=== PATIENT | male | born 1990 | race Caucasian/White ===

== ENCOUNTER 2021-06-30 13:48 | Emergency (ER) | payer BC ==
[~2021-06-30] VITALS: Ht 182.9 cm; Wt 108.9 kg
[2021-06-30] MEDS ORDERED: DEXTROSE 50% 50 ML DISP.SYRIN IV ONE ×2 (14:15)
[2021-06-30] MEDS ORDERED: DEXAMETHASONE 4 MG TABLET PO ONE (14:15)
[2021-06-30] MEDS ORDERED: DEXA6TAB6 PO (14:22)
[2021-06-30] MEDS ORDERED: ALBU8.5H8 INH (14:22)
[2021-06-30] MEDS ORDERED: AZIT250T PO (14:22)
[2021-06-30] MEDS ORDERED: DEXAMETHASONE 4 MG TABLET ONE (14:31)
--- NOTE | 2021-06-30 14:35 | NUR ---
Patient discharged to home in stable condition. Written and verbal after care instructions given. Patient verbalizes understanding of instructions. Stressed follow up or return to ER for worsening s/s.
[2021-06-30 14:37] VITALS: BP 153/82
== END 2021-06-30 14:38 | disposition home or self-care (01) ==
LOC: ER 13:48
DX: U07.1 COVID-19 (principal); J12.82 Pneumonia due to coronavirus disease 2019
CPT/HCPCS: 71045; 99283; J8540; A4663

== ENCOUNTER 2021-07-12 19:45 | Emergency (ER) | payer BC ==
[~2021-07-12] VITALS: Ht 182.9 cm; Wt 104.3 kg
[~2021-07-12 19:45] MED LIST: ALBU8.5H8 INH; AZIT250T PO; DEXA6TAB6 PO
--- NOTE | 2021-07-12 19:55 | NUR ---
Pt here for flu symptoms, "lung pain", denies chest pain. Pt tested covid + 21 days ago, according to pt. was here and d/c june 29 w/ pnuemonia. Pt tachycardic hr 130-140's, otherwise vss stable. Pt stated he had a 102 fever at home today. Spo2>95% on RA.
[2021-07-12] MEDS ORDERED: IV NORMAL SALINE 1000 ML BAG IV ONE (20:30)
[2021-07-12] MEDS ORDERED: CEFTRIAXONE 1 G in IV DEXTROSE 5% 50 ML IV ONE (20:30)
[2021-07-12 20:37] LABS: HEMATOCRIT 43.1 % (36.7-47.1); MEAN CORPUSCULAR HEMOGLOBIN 26.9 uug (23.8-33.4); MEAN CORPUSCULAR VOLUME 80.7 fL (73.0-96.2); PLATELET COUNT (AUTO) 298 K/uL (152-348)
[2021-07-12] MEDS ORDERED: CEFTRIAXONE /D5W 50ML IVPB **ER PYXIS IV ONE (20:45)
[2021-07-12 20:48] LABS: CREATININE 1.1 mg/dL (0.6-1.3); POTASSIUM 3.6 mmol/L (3.5-5.1)
[2021-07-12 21:00] LABS: BILIRUBIN,DIRECT 0.2 mg/dL (0.0-0.2); BILIRUBIN,TOTAL 0.8 mg/dL (0.2-1.0); TOTAL PROTEIN, SERUM 7.9 g/dL (6.4-8.2)
[2021-07-12 21:16] LABS: *BILIRUBIN,URIN NEGATIVE (NEGATIVE); *BLOOD, URINE NEGATIVE (NEGATIVE); *CLARITY,URINE CLEAR (CLEAR); *COLOR,URINE YELLOW (YELLOW); *KETONES,URINE NEGATIVE (NEGATIVE); *UROBILINOGEN,URINE 0.2 E.U./dl (NORMAL); LEUKOCYTE ESTERASE ,URINE NEGATIVE (NEGATIVE); NITRITE, URINE NEGATIVE (NEGATIVE); UGLUCOSE NEGATIVE (NEGATIVE)
--- NOTE | 2021-07-12 22:10 | NUR ---
Pt oral temp 102.2, MD notified, cooling measures in place.
[2021-07-12] MEDS ORDERED: DEXA4TAB PO (22:18)
[2021-07-12] MEDS ORDERED: CEFD300C3 PO (22:18)
[2021-07-12] MEDS ORDERED: ACETAMINOPHEN 325 MG TABLET PO ONE (22:30)
[2021-07-12] MEDS ORDERED: DEXAMETHASONE SOD PHOSPHATE 4 MG INJ IV ONE (22:30)
[2021-07-12] MEDS ORDERED: ACETAMINOPHEN 325 MG TABLET ONE (22:36)
[2021-07-12] MEDS ORDERED: DEXAMETHASONE SOD PHOSPHATE 10 MG INJ ONE (22:37)
--- NOTE | 2021-07-13 | NUR ---
Patient discharged to home in stable condition. Written and verbal after care instructions given. Patient verbalizes understanding of instructions. Stressed follow up or return to ER for worsening s/s. Patient out of ER with steady gait, no acute signs of distress, VSS, all belongings taken, IV site discontinued.
[2021-07-13 00:01] VITALS: BP 149/82
== END 2021-07-13 00:02 | disposition home or self-care (01) ==
LOC: ER 19:49
DX: J18.9 Pneumonia, unspecified organism (principal); Z86.16 Personal history of COVID-19
CPT/HCPCS: 36415; 71045; 80048; 80076; 81003; 83605; 83880; 84145; 84484; 85025; 85730; 87040 ×2; 87086; 87426; 93005; 96361; 96365; 96375; 99285; J0696; J1100; 70030-TC; A4663; J7030; J7050